=== PATIENT | male | born 1985 | race Caucasian/White ===

== ENCOUNTER 2024-02-21 11:01 | Emergency (ER) | payer OTHER ==
[~2024-02-21] VITALS: Ht 180.3 cm; Wt 63.5 kg
[2024-02-21 11:07] VITALS: BP_SYST 128; PULSE 76; RESP 16; TEMP 98.1; O2SAT 99
[2024-02-21] MEDS: KETOROLAC TROMETHAMINE 60 MG/2 ML VIAL IM ONE (11:44)
[2024-02-21] MEDS ORDERED: IBUP-1969 PO (15:33)
[2024-02-21 15:41] VITALS: BP_SYST 148; PULSE 74; RESP 18; TEMP 98.1; O2SAT 98
== END 2024-02-21 15:45 | disposition home or self-care (01) ==
LOC: SED 11:01
DX: S39.94XA Unspecified injury of external genitals, initial encounter (principal); N50.3 Cyst of epididymis; Z88.8 Allergy status to other drugs, medicaments and biological substances; W21.221A Struck by field hockey puck, initial encounter; Y93.89 Activity, other specified; Y92.89 Other specified places as the place of occurrence of the external cause; Y99.8 Other external cause status
CPT/HCPCS: 99285; 76870; 96372; J1885